=== PATIENT | female | born 1965 | race Caucasian/White ===

== ENCOUNTER 2022-09-12 09:21 | Emergency (ER) | payer SELFPAY ==
[~2022-09-12] VITALS: Ht 165.1 cm; Wt 62.6 kg
[2022-09-12 09:27] VITALS: BP 157/94
[2022-09-12] MEDS ORDERED: NAPR-54 PO (09:43)
[2022-09-12] MEDS ORDERED: KETO5SOL7 RIGHT EYE (09:43)
--- NOTE | 2022-09-12 10:03 | NUR ---
56/F PRESENTS TO ED WITH C/O BILATERAL HAND PAIN, STATES HX OF CARPAL TUNNEL AND BELIEVES PAIN IS RELATED, DENIES RECENT INJURY OR TRAUMA. DENIES TAKING MEDS FOR PAIN.
--- NOTE | 2022-09-12 10:03 | NUR ---
pt placed in both left and right volar velcro splint cms wnl before and after.
--- NOTE | 2022-09-12 10:14 | NUR ---
Patient discharged with v/s stable. Written and verbal after care instructions given and explained for Chemical Conjunctivitis, Carpal tunnel syndrome. Patient alert, oriented and verbalized understanding of instructions. Ambulatory with steady gait. All questions addressed prior to discharge. ID band removed. Patient advised to follow up with PMD. Rx of Ketotifen Fumarate, Naproxen given. Patient educated on indication of medication including possible reaction and side effects. Opportunity to ask questions provided and answered.
== END 2022-09-12 10:14 | disposition home or self-care (01) ==
LOC: MED 09:21
DX: G56.03 Carpal tunnel syndrome, bilateral upper limbs (principal); F17.200 Nicotine dependence, unspecified, uncomplicated; Z71.6 Tobacco abuse counseling; Z86.73 Personal history of transient ischemic attack (TIA), and cerebral infarction without residual deficits; Z86.69 Personal history of other diseases of the nervous system and sense organs
CPT/HCPCS: 99283

== ENCOUNTER 2022-10-11 14:11 | Emergency (ER) | payer SELFPAY ==
[~2022-10-11] VITALS: Ht 165.1 cm; Wt 61.2 kg
[~2022-10-11 14:11] MED LIST: KETO5SOL7 RIGHT EYE; NAPR-54 PO
[2022-10-11 14:25] VITALS: BP 147/95
--- NOTE | 2022-10-11 14:27 | NUR ---
PT AMBULATED TO LOBBY
--- NOTE | 2022-10-11 14:50 | NUR ---
57/F WALKED IN C/O RIGHT WRIST PAIN. PT REPORTS B/L WRIST CARPAL TUNNEL DX. PT REPORTS RIGHT WRIST GOT WORSE RECENTLY. REPORTS TAKING ALEVE TODAY WITH NO RELIEF. DENIES RECENT FALL OR INJURY TO WRIST. AAO4, AMBULATORY, VITALS STABLE. PMH: DENIES
[2022-10-11] MEDS ORDERED: KETOROLAC 30 MG/ML VIAL IM ONE (15:20)
[2022-10-11] MEDS ORDERED: NAPR-54 PO (15:33)
--- NOTE | 2022-10-11 15:40 | NUR ---
Velcro volar splint applied to right wrist. Patient instructed to check for decreased circulation to include numbness/tingling, loss of sensation, coolness. +PMSC before/after. Patient verbalized understanding.
--- NOTE | 2022-10-11 15:45 | NUR ---
Patient discharged with v/s stable. Written and verbal after care instructions given and explained for Carpal Tunnel Syndrome, Wrist Pain (Adult). Patient alert, oriented and verbalized understanding of instructions. Ambulatory with steady gait. All questions addressed prior to discharge. ID band removed. Patient advised to follow up with PMD. Rx of Naproxen given. Patient educated on indication of medication including possible reaction and side effects. Opportunity to ask questions provided and answered. Work note given to patient. Ortho instructions provided; patient verbalized understanding without further questions.
== END 2022-10-11 15:45 | disposition home or self-care (01) ==
LOC: MED 14:11
DX: M25.531 Pain in right wrist (principal); M25.532 Pain in left wrist; Z86.73 Personal history of transient ischemic attack (TIA), and cerebral infarction without residual deficits; Z79.899 Other long term (current) drug therapy
CPT/HCPCS: 29125; 96372; 99283; J1885

== ENCOUNTER 2022-12-19 10:10 | Emergency (ER) | payer OTHER ==
[~2022-12-19] VITALS: Ht 165.1 cm; Wt 65.8 kg
[2022-12-19 10:11] VITALS: BP 138/88
--- NOTE | 2022-12-19 10:21 | NUR ---
AMB TO BED 5
--- NOTE | 2022-12-19 10:30 | NUR ---
57 y/o female c/o right hand pain d/t carpal tunnel. Patients pain is chonic x 5 years. Per patient, pain has been increasing and radiating up arm to right shoulder. Patient has positive radial pulses. Patient is noted with swelling to right hand and wrist. Medical History: Gallbladder Removal, Right Carparl Tunnel NKDA
--- NOTE | 2022-12-19 10:36 | NUR ---
Patient being evaluated by physician at bedside.
[2022-12-19] MEDS ORDERED: LIDOCAINE 1% 500 MG/ 50 ML VIAL INJ ONE (10:40)
[2022-12-19] MEDS ORDERED: LIDOCAINE MPF 1% 5 ML ONE (10:49)
[2022-12-19] MEDS ORDERED: NAPR-1704 PO (11:18)
[2022-12-19] MEDS ORDERED: CYCL-711 PO (11:26)
[2022-12-19 11:30] VITALS: BP 129/86
--- NOTE | 2022-12-19 11:30 | NUR ---
Patient discharged with v/s stable. Written and verbal after care instructions given. Patient alert, oriented and verbalized understanding of instructions. Ambulatory with steady gait. All questions addressed prior to discharge. ID band removed. Patient advised to follow up with PMD. Rx of Naproxen and Flexeril given. Opportunity to ask questions provided and answered.
--- NOTE | 2022-12-19 11:30 | NUR ---
The patient's care was reviewed and supervised by Marycarmen Garcia RN.
== END 2022-12-19 11:30 | disposition home or self-care (01) ==
LOC: MED 10:10
DX: G56.01 Carpal tunnel syndrome, right upper limb (principal); M62.830 Muscle spasm of back; F17.200 Nicotine dependence, unspecified, uncomplicated; Z71.6 Tobacco abuse counseling; Z86.73 Personal history of transient ischemic attack (TIA), and cerebral infarction without residual deficits; Z86.69 Personal history of other diseases of the nervous system and sense organs; Z90.49 Acquired absence of other specified parts of digestive tract; Z79.899 Other long term (current) drug therapy; Z79.1 Long term (current) use of non-steroidal anti-inflammatories (NSAID)
CPT/HCPCS: 20552; 99284; J2001

== ENCOUNTER 2023-01-05 09:22 | Emergency (ER) | payer OTHER ==
[~2023-01-05] VITALS: Ht 165.1 cm; Wt 66.2 kg
[~2023-01-05 09:22] MED LIST changes: +CYCL-711 PO; +NAPR-1704 PO
[2023-01-05 09:30] VITALS: BP 145/94
[2023-01-05] MEDS ORDERED: KETOROLAC 30 MG/ML VIAL IM ONE (09:45)
[2023-01-05] MEDS ORDERED: NAPR-54 PO (10:28)
[2023-01-05] MEDS ORDERED: GABA300C PO (10:28)
[2023-01-05 10:48] VITALS: BP 145/94
--- NOTE | 2023-01-05 10:48 | NUR ---
Patient discharged with v/s stable. Written and verbal after care instructions given and explained. Patient alert, oriented and verbalized understanding of instructions. Ambulatory with steady gait. All questions addressed prior to discharge. ID band removed. Patient advised to follow up with PMD. Rx of GABAPENTIN, NAPROXEN (SENT) given. Patient educated on indication of medication including possible reaction and side effects. Opportunity to ask questions provided and answered.
== END 2023-01-05 10:52 | disposition home or self-care (01) ==
LOC: MED 09:22
DX: M25.531 Pain in right wrist (principal); M25.532 Pain in left wrist; R03.0 Elevated blood-pressure reading, without diagnosis of hypertension; Z86.73 Personal history of transient ischemic attack (TIA), and cerebral infarction without residual deficits; Z79.899 Other long term (current) drug therapy
CPT/HCPCS: 29125; 96372; 99283; J1885

== ENCOUNTER 2023-04-16 12:08 | Emergency (ER) | payer OTHER ==
[~2023-04-16] VITALS: Ht 162.6 cm; Wt 59.0 kg
[~2023-04-16 12:08] MED LIST changes: +GABA300C PO; +KETO5DRO68 RIGHT EYE; -KETO5SOL7 RIGHT EYE
[2023-04-16 12:21] VITALS: BP 158/101; PULSE 86; RESP 18; TEMP 97; O2SAT 98
[2023-04-16] MEDS ORDERED: KETOROLAC 30 MG/ML VIAL IM ONE (13:20)
[2023-04-16] MEDS ORDERED: CYCL-711 PO (13:24)
[2023-04-16] MEDS ORDERED: NAPR-54 PO (13:24)
--- NOTE | 2023-04-16 13:31 | NUR ---
SHERRI WRAP X 1 TO R WRIST.
[2023-04-17] MEDS ORDERED: IBUP-2213 PO (15:12)
[2023-04-17] MEDS ORDERED: CEPH-588 PO (15:12)
[2023-04-17] MEDS ORDERED: SULF-59 PO (15:12)
== END 2023-04-16 14:59 | disposition home or self-care (01) ==
LOC: MED 12:08
DX: M25.531 Pain in right wrist (principal); M25.532 Pain in left wrist; G89.29 Other chronic pain; Z86.73 Personal history of transient ischemic attack (TIA), and cerebral infarction without residual deficits; Z79.899 Other long term (current) drug therapy
CPT/HCPCS: 96372; 99283; J1885

== ENCOUNTER 2023-04-17 13:34 | Emergency (ER) | payer OTHER ==
[~2023-04-17] VITALS: Ht 165.1 cm; Wt 66.2 kg
[2023-04-17 13:39] VITALS: BP 142/88; PULSE 113; RESP 16; TEMP 98.4; O2SAT 99
[2023-04-17 13:46] VITALS: TEMP 98.4
--- NOTE | 2023-04-17 13:47 | NUR ---
57 Y F PATIENT PRESENTS TO ED WITH LEFT SIDE ARM PAIN. PT STATES SHES HAS CARPAL TUNNEL SYNDROME. SHES DUE FOR SURGERY. PT CAME IN 04/16/23 FOR SAME PAIN IN RIGHT HAND. . DENIES N/V/D; SKIN IS PINK/WARM/DRY; AAOX4 WITH EVEN AND STEADY GAIT; LUNGS CLEAR BL; HR EVEN AND REGULAR; PT DENIES ANY FEVER, CP, SOB, OR COUGH AT THIS TIME; PATIENT STATES PAIN OF 10/10 AT THIS TIME; VSS; PATIENT POSITIONED FOR COMFORT; HOB ELEVATED; BEDRAILS UP X2; BED DOWN. CALL LIGHT WITH IN REACH. ER MD MADE AWARE OF PT STATUS. PMHX CARPAL TUNNEL KNA
[2023-04-17 13:52] VITALS: O2SAT 99
[2023-04-17] MEDS ORDERED: KETOROLAC 30 MG/ML VIAL IM ONE (14:10)
[2023-04-17] MEDS ORDERED: NACL 0.9% 1,000 ML IV ONE (14:40)
[2023-04-17] MEDS ORDERED: cefTRIAXone 1,000 MG VIAL ONE (14:52)
[2023-04-17] MEDS ORDERED: IBUP-2213 PO (15:12)
[2023-04-17] MEDS ORDERED: SULF-59 PO (15:12)
[2023-04-17] MEDS ORDERED: CEPH-588 PO (15:12)
[2023-04-17 15:33] LABS: BASOPHILS % (AUTO) 0.3 % (0.0-2.0); EOSINOPHILS # (AUTO) 0.1 K/uL (0-0.4); EOSINOPHILS % (AUTO) 1.2 % (0.0-4.0); HEMATOCRIT 35.9 % (36-48); LYMPHOCYTES % (AUTO) 22.2 % (20.5-51.1); MEAN CORPUSCULAR HEMOGLOBIN 30 pg (27-31); MEAN CORPUSCULAR HGB CONC 34 g/dL (33-37); MEAN CORPUSCULAR VOLUME 89.2 fL (80-94); MONOCYTES # (AUTO) 0.5 K/uL (0.8-1.0); MONOCYTES % (AUTO) 11.4 % (1.7-9.3); NEUTROPHILS # (AUTO) 2.9 K/uL (1.8-7.7); NEUTROPHILS % (AUTO) 64.9 % (42.2-75.2); PLATELET COUNT (AUTO) 76 K/uL (140-450); RED BLOOD CELL COUNT(AUTO) 4.03 MIL/uL (4.20-5.40); WHITE BLOOD COUNT (AUTO) 4.5 K/uL (4.8-10.8)
[2023-04-17 15:53] LABS: ALBUMIN 2.8 g/dL (3.4-5.0); ANION GAP 11.4 (8-16); CARBON DIOXIDE 27.2 mmol/L (21-32); CREATININE 0.6 mg/dL (0.6-1.3); POTASSIUM 3.6 mmol/L (3.5-5.1); TOTAL BILIRUBIN 1.3 mg/dL (0.0-1.0)
[2023-04-17] MEDS ORDERED: HYDROcodone/APAP 5/325 MG 1 TAB TAB ONE (16:03)
[2023-04-17] MEDS ORDERED: HYDROcodone/APAP 5/325 MG 1 TAB TAB PO ONE (16:05)
[2023-04-17 16:40] VITALS: BP 115/74; PULSE 90; RESP 18; O2SAT 98
--- NOTE | 2023-04-17 16:40 | NUR ---
Patient discharged with v/s stable. Written and verbal after care instructions given and explained. Patient alert, oriented and verbalized understanding of instructions. Ambulatory with steady gait. All questions addressed prior to discharge. ID band removed. Patient advised to follow up with PMD. Rx of KELFEX, BACTRIM , MOTRIN given. Patient educated on indication of medication including possible reaction and side effects. Opportunity to ask questions provided and answered.
== END 2023-04-17 16:40 | disposition home or self-care (01) ==
LOC: MED 13:34
DX: S50.852A Superficial foreign body of left forearm, initial encounter (principal); L03.114 Cellulitis of left upper limb; Z86.73 Personal history of transient ischemic attack (TIA), and cerebral infarction without residual deficits; Z79.899 Other long term (current) drug therapy; X58.XXXA Exposure to other specified factors, initial encounter; Y93.89 Activity, other specified; Y92.89 Other specified places as the place of occurrence of the external cause; Y99.8 Other external cause status
CPT/HCPCS: 36415; 73090; 73130; 80053; 83605; 85025; 87040; 96365; 96375; 99284; J0696; J1885; J7030; Q0092

== ENCOUNTER 2023-05-19 01:08 | Emergency (ER) | payer OTHER ==
[~2023-05-19] VITALS: Ht 165.1 cm; Wt 66.2 kg
[2023-05-19 01:08] VITALS: BP 163/102; PULSE 90; RESP 17; TEMP 98; O2SAT 98
[~2023-05-19 01:08] MED LIST changes: +ACET-8905 PO; +CEPH-588 PO; +IBUP-2213 PO; +SULF-59 PO
[2023-05-19] MEDS ORDERED: ACET-8905 PO (16:21)
[2023-05-19] MEDS ORDERED: IBUP-2213 PO (16:21)
== END 2023-05-19 03:08 | disposition left against medical advice (07) ==
LOC: MED 01:08
DX: M25.532 Pain in left wrist (principal); Z53.21 Procedure and treatment not carried out due to patient leaving prior to being seen by health care provider
CPT/HCPCS: 99281

== ENCOUNTER 2023-05-19 14:38 | Emergency (ER) | payer OTHER ==
[~2023-05-19] VITALS: Ht 165.1 cm; Wt 66.2 kg
[2023-05-19 14:50] VITALS: BP 145/95; PULSE 78; RESP 18; TEMP 96.6; O2SAT 99
[2023-05-19 14:57] VITALS: O2SAT 99
[2023-05-19] MEDS ORDERED: HYDROcodone/APAP 5/325 MG 1 TAB TAB PO ONE (15:20)
[2023-05-19] MEDS ORDERED: KETOROLAC 30 MG/ML VIAL IM ONE (15:20)
[2023-05-19] MEDS ORDERED: ACET-8905 PO (16:21)
[2023-05-19] MEDS ORDERED: IBUP-2213 PO (16:21)
[2023-05-19 16:32] VITALS: BP 135/85; PULSE 75; RESP 18
== END 2023-05-19 16:34 | disposition home or self-care (01) ==
LOC: MED 14:38
DX: R20.2 Paresthesia of skin (principal); Z76.0 Encounter for issue of repeat prescription; Z86.73 Personal history of transient ischemic attack (TIA), and cerebral infarction without residual deficits; Z79.899 Other long term (current) drug therapy
CPT/HCPCS: 96372; 99283; J1885

== ENCOUNTER 2023-07-09 15:31 | Emergency (ER) | payer OTHER ==
[~2023-07-09] VITALS: Ht 165.1 cm; Wt 65.8 kg
[2023-07-09 16:01] VITALS: BP 145/99; PULSE 90; RESP 18; TEMP 97.6; O2SAT 99
[2023-07-09] MEDS ORDERED: KETOROLAC 30 MG/ML VIAL IM ONE (16:35)
[2023-07-09] MEDS ORDERED: NAPR-54 PO (17:56)
== END 2023-07-09 18:01 | disposition home or self-care (01) ==
LOC: MED 15:31
DX: G56.01 Carpal tunnel syndrome, right upper limb (principal); Z86.73 Personal history of transient ischemic attack (TIA), and cerebral infarction without residual deficits; Z86.69 Personal history of other diseases of the nervous system and sense organs; Z79.899 Other long term (current) drug therapy; Z79.1 Long term (current) use of non-steroidal anti-inflammatories (NSAID); Z79.2 Long term (current) use of antibiotics
CPT/HCPCS: 96372; 99283; J1885

== ENCOUNTER 2023-08-01 14:34 | Emergency (ER) | payer OTHER ==
[~2023-08-01] VITALS: Ht 165.1 cm; Wt 69.5 kg
[2023-08-01 14:57] VITALS: BP 151/99; PULSE 90; RESP 19; TEMP 98.1; O2SAT 97
[2023-08-01] MEDS ORDERED: NAPR-54 PO (17:03)
== END 2023-08-01 17:09 | disposition home or self-care (01) ==
LOC: MED 14:34
DX: N64.4 Mastodynia (principal); Z79.899 Other long term (current) drug therapy
CPT/HCPCS: 99282

== ENCOUNTER 2023-09-18 10:23 | Emergency (ER) | payer OTHER ==
[~2023-09-18] VITALS: Ht 165.1 cm; Wt 66.0 kg
[2023-09-18 10:56] VITALS: BP 141/89; PULSE 65; RESP 20; TEMP 98.5; O2SAT 99
[2023-09-18] MEDS ORDERED: KETOROLAC 30 MG/ML VIAL IM ONE (11:05)
[2023-09-18] MEDS ORDERED: NAPR-54 PO (14:00)
== END 2023-09-18 14:11 | disposition home or self-care (01) ==
LOC: MED 10:23
DX: S20.212A Contusion of left front wall of thorax, initial encounter (principal); M25.531 Pain in right wrist; Z87.39 Personal history of other diseases of the musculoskeletal system and connective tissue; Z86.73 Personal history of transient ischemic attack (TIA), and cerebral infarction without residual deficits; Z86.69 Personal history of other diseases of the nervous system and sense organs; Z79.899 Other long term (current) drug therapy; Z79.1 Long term (current) use of non-steroidal anti-inflammatories (NSAID); Z79.2 Long term (current) use of antibiotics; W01.0XXA Fall on same level from slipping, tripping and stumbling without subsequent striking against object, initial encounter; Y92.89 Other specified places as the place of occurrence of the external cause; Y93.89 Activity, other specified; Y99.8 Other external cause status
CPT/HCPCS: 71101; 96372; 99283; J1885

== ENCOUNTER 2023-11-05 13:14 | Emergency (ER) | payer OTHER ==
[~2023-11-05] VITALS: Ht 165.1 cm; Wt 59.0 kg
[2023-11-05 13:49] VITALS: BP 160/108; PULSE 102; RESP 17; TEMP 98.1; O2SAT 98
[2023-11-05] MEDS ORDERED: KETOROLAC 30 MG/ML VIAL IM ONE (14:20)
[2023-11-05] MEDS ORDERED: ACET-8905 PO (14:21)
[2023-11-05] MEDS ORDERED: NAPR-1704 PO (14:21)
== END 2023-11-05 14:43 | disposition home or self-care (01) ==
LOC: MED 13:14
DX: G56.03 Carpal tunnel syndrome, bilateral upper limbs (principal); Z85.3 Personal history of malignant neoplasm of breast; Z79.899 Other long term (current) drug therapy
CPT/HCPCS: 29125; 96372; 99283; J1885

== ENCOUNTER 2023-12-06 12:22 | Emergency (ER) | payer OTHER ==
[~2023-12-06] VITALS: Ht 165.1 cm; Wt 63.5 kg
[2023-12-06 12:48] VITALS: BP 148/103; PULSE 95; RESP 18; TEMP 98.3; O2SAT 97
[2023-12-06] MEDS: KETOROLAC 30 MG/ML VIAL IM ONE (14:33)
== END 2023-12-06 14:50 | disposition home or self-care (01) ==
LOC: MED 12:22
DX: G56.03 Carpal tunnel syndrome, bilateral upper limbs (principal); R03.0 Elevated blood-pressure reading, without diagnosis of hypertension; Z86.73 Personal history of transient ischemic attack (TIA), and cerebral infarction without residual deficits; Z86.69 Personal history of other diseases of the nervous system and sense organs; Z79.899 Other long term (current) drug therapy
CPT/HCPCS: 36415; 82565; 96372; 99283; J1885

== ENCOUNTER 2024-04-07 08:10 | Emergency (ER) | payer OTHER ==
[~2024-04-07] VITALS: Ht 165.1 cm; Wt 68.7 kg
[~2024-04-07 08:10] MED LIST changes: +NAPR-337 PO; -NAPR-54 PO
[2024-04-07 08:17] VITALS: BP 167/85; PULSE 77; RESP 20; TEMP 97.8; O2SAT 97
[2024-04-07] MEDS ORDERED: NAPR-337 PO (08:31)
[2024-04-07] MEDS: KETOROLAC 30 MG/ML VIAL IM ONE (08:35)
[2024-04-07 08:45] VITALS: BP 152/85; PULSE 76; RESP 18; TEMP 97.8; O2SAT 98
== END 2024-04-07 08:45 | disposition home or self-care (01) ==
LOC: MED 08:10
DX: G56.02 Carpal tunnel syndrome, left upper limb (principal); Z86.73 Personal history of transient ischemic attack (TIA), and cerebral infarction without residual deficits; Z86.69 Personal history of other diseases of the nervous system and sense organs; Z79.1 Long term (current) use of non-steroidal anti-inflammatories (NSAID); Z79.2 Long term (current) use of antibiotics; Z79.899 Other long term (current) drug therapy
CPT/HCPCS: 96372; 99283; J1885

== ENCOUNTER 2024-06-09 09:10 | Emergency (ER) | payer OTHER ==
[~2024-06-09] VITALS: Ht 165.1 cm; Wt 64.0 kg
[2024-06-09 09:18] VITALS: BP 142/98; PULSE 73; RESP 16; TEMP 98.1; O2SAT 100
[2024-06-09 10:17] LABS: FLU A ANTIGEN negative (NEGATIVE); FLU B ANTIGEN negative (NEGATIVE)
--- NOTE | 2024-06-09 10:41 | NUR ---
Patient discharged with v/s stable. Written and verbal after care instructions FOR COVID 19 given and explained. Patient verbalized understanding. Ambulatory with steady gait. All questions addressed prior to discharge. Advised to follow up with PMD.
== END 2024-06-09 10:41 | disposition home or self-care (01) ==
LOC: MED 09:10
DX: U07.1 COVID-19 (principal); Z86.73 Personal history of transient ischemic attack (TIA), and cerebral infarction without residual deficits; Z86.69 Personal history of other diseases of the nervous system and sense organs; Z79.899 Other long term (current) drug therapy
CPT/HCPCS: 99283

== ENCOUNTER 2024-06-14 18:40 | Emergency (ER) | payer OTHER ==
[~2024-06-14] VITALS: Ht 165.1 cm; Wt 63.5 kg
[2024-06-14 18:46] VITALS: BP 148/101; PULSE 78; RESP 22; TEMP 97.9; O2SAT 99
[2024-06-14] MEDS ORDERED: NAPR-337 PO (19:08)
[2024-06-14] MEDS: KETOROLAC 30 MG/ML VIAL IM ONE (19:34)
[2024-06-14] MEDS: ACETAMINOPHEN EXTRA STRENGTH 500 MG TAB PO ONE (19:36)
[2024-06-14 19:58] VITALS: BP 128/79; PULSE 80; RESP 17; TEMP 97.9; O2SAT 98
== END 2024-06-14 19:58 | disposition home or self-care (01) ==
LOC: MED 18:40
DX: G56.03 Carpal tunnel syndrome, bilateral upper limbs (principal); Z86.73 Personal history of transient ischemic attack (TIA), and cerebral infarction without residual deficits; Z86.69 Personal history of other diseases of the nervous system and sense organs; Z85.3 Personal history of malignant neoplasm of breast; Z79.899 Other long term (current) drug therapy
CPT/HCPCS: 96372; 99283; J1885